=== PATIENT | male | born 1965 ===

== ENCOUNTER 2018-04-17 09:39 | Outpatient (CLI) | payer OTHER ==
[~2018-04-17] VITALS: Ht 167.6 cm; Wt 102.1 kg
== END 2018-04-17 10:00 | disposition home or self-care (01) ==
LOC: OFIC 805 09:39
DX: D11.0 Benign neoplasm of parotid gland (principal)

== ENCOUNTER 2018-05-11 10:01 | Outpatient (CLI) | payer OTHER ==
[~2018-05-11] VITALS: Ht 152.4 cm; Wt 102.1 kg
== END 2018-05-11 10:15 | disposition home or self-care (01) ==
LOC: OFIC 805 10:01
DX: D11.0 Benign neoplasm of parotid gland (principal)

== ENCOUNTER 2018-07-25 08:06 | Outpatient (CLI) | payer OTHER ==
[~2018-07-25] VITALS: Ht 152.4 cm; Wt 98.0 kg
== END 2018-07-25 08:25 | disposition home or self-care (01) ==
LOC: OFIC 805 08:06
DX: D11.0 Benign neoplasm of parotid gland (principal)